=== PATIENT | female | born 1995 | race Two or more races ===

== ENCOUNTER 2024-10-09 18:20 | Emergency (ER) | payer OTHER ==
[~2024-10-09] VITALS: Ht 165.1 cm; Wt 76.2 kg
== END 2024-10-09 22:41 | disposition left against medical advice (07) ==
LOC: ER 18:22
DX: K06.9 Disorder of gingiva and edentulous alveolar ridge, unspecified (principal); Z3A.08 8 weeks gestation of pregnancy; Z53.29 Procedure and treatment not carried out because of patient's decision for other reasons

== ENCOUNTER 2025-04-20 10:28 | Inpatient (IN) | payer OTHER ==
[~2025-04-20] VITALS: Ht 165.1 cm; Wt 98.0 kg
[2025-04-20] MEDS ORDERED: PRENATAL TABLE1 EAC1 PO (10:43)
[2025-04-20 10:44] VITALS: BP 113/63
[2025-04-20] MEDS ORDERED: PEPCID AC20 MG PO (10:44)
[2025-04-20] MEDS ORDERED: RINGERS SOLUTION,LACTATED 1,000 ML IV SCH (10:45)
[2025-04-20 12:20] LABS: PH,URINE 6.5 (5.0-8.0); URINE APPEARANCE Clear; URINE BILIRRUBIN Negative (NEGATIVE); URINE BLOOD Negative; URINE COLOR Yellow; URINE GLUCOSE Negative (NEGATIVE); URINE KETONE Negative (NEGATIVE); URINE LEUKOCYTE Negative; URINE NITRATE Negative; URINE PROTEIN Negative (NEGATIVE)
[2025-04-20 12:26] VITALS: BP 105/72
[2025-04-20 12:26] LABS: URINE BACTERIA 292.4 uL (0.0-1933); URINE EPITHELIAL CELLS 26.5 uL (0.0-38.8); URINE RBC 5.4 uL (0.0-20.8); URINE WBC 18.6 uL (0.0-23.2)
[2025-04-20 12:43] LABS: URINE CAST 0.14 uL (0.0-1.40)
[2025-04-20 12:48] VITALS: BP 105/72; BP 113/63
[2025-04-20 13:00] LABS: INR 0.94; PARTIAL THROMBOPLASTIN TIME 23.6 SECONDS (22.0-34.0); PROTHROMBIN TIME 10.3 SECONDS (9.0-11.5)
[2025-04-20 13:08] LABS: ALBUMIN 2.6 gm/dL (3.4-5.0); BILIRUBIN TOTAL 0.38 mg/dL (0.3-1.2); CALCIUM 8.7 mg/dL (8.5-10.1); CREATININE SERUM 0.46 mg/dL (0.55-1.02); GFR 158.44; GLOBULINA 3.4 G/DL (2.4-3.5)
[2025-04-20] MEDS ORDERED: AMPICILLIN SODIUM 2,000 MG VIAL IV STA (13:19)
[2025-04-20] MEDS ORDERED: AMPICILLIN SODIUM 2,000 MG VIAL ONE (13:23)
[2025-04-20] MEDS ORDERED: OXYTOCIN 500 ML IV SCH (13:45)
[2025-04-20 15:21] VITALS: BP 111/59; BP 98/66
[2025-04-20 15:25] LABS: BASO % 0.3 % (0.1-1.2); EOS # 0.04 (0.04-0.54); EOS % 0.6 % (0.7-7.0); HEMATOCRIT 32.2 % (34.1-44.9); HEMOGLOBIN 10.5 g/dL (11.2-15.7); LYMPH # 1.35 (1.18-3.74); LYMPH % 19.5 % (19.3-53.1); MEAN CORPUSCULAR HEMOGLOBIN 28.5 pg (25.6-32.2); MONO % 10.1 % (4.7-12.5); NEUT # 4.77 (1.56-6.13); NEUT % 68.9 % (34.0-71.1); PLATELET COUNT 227 K/uL (163-369); RED BLOOD COUNT 3.69 M/uL (3.93-5.22); RED CELL DISTRIBUTION WIDTH 12.3 % (11.6-14.4)
[2025-04-20] MEDS ORDERED: AMPICILLIN SODIUM 1,000 MG VIAL IV SCH (17:00)
[2025-04-20] MEDS ORDERED: ERYTHROMYCIN BASE OPHT 1GM EACH TUBE OP ONE ×2 (18:49→21:54)
[2025-04-20] MEDS ORDERED: OXYTOCIN 20 UNITS/1000ML RL PIGGYBAG IV ONE ×2 (18:49→23:20)
[2025-04-20] MEDS ORDERED: LIDOCAINE HCL 1% 10ML VIAL ONE (18:50)
[2025-04-20] MEDS ORDERED: CHLORHEXIDINE GLUCONATE 120 ML BOTTLE TOP ONE (18:50)
[2025-04-20 19:32] VITALS: BP 136/60
[2025-04-20] MEDS ORDERED: CITRIC ACID/SODIUM CITRATE 30 ML BLIST.PACK PO ONE (21:30)
[2025-04-20] MEDS ORDERED: IBUprofen 600 MG TABLET PO SCH (22:15)
[2025-04-20 23:26] VITALS: BP 110/58
[2025-04-21 01:25] VITALS: BP 118/74
[2025-04-21 09:02] VITALS: BP 100/60
[2025-04-21] MEDS ORDERED: FAMOtidine 20 MG TABLET PO NR (10:15)
[2025-04-21 10:51] LABS: BASO % 0.1 % (0.1-1.2); EOS # 0.02 (0.04-0.54); EOS % 0.1 % (0.7-7.0); HEMATOCRIT 33.2 % (34.1-44.9); HEMOGLOBIN 11.2 g/dL (11.2-15.7); LYMPH # 2.02 (1.18-3.74); LYMPH % 11.4 % (19.3-53.1); MEAN CORPUSCULAR HEMOGLOBIN 29.2 pg (25.6-32.2); MONO # 1.37 (0.24-0.82); MONO % 7.7 % (4.7-12.5); NEUT # 14.16 (1.56-6.13); NEUT % 80.2 % (34.0-71.1); PLATELET COUNT 263 K/uL (163-369); RED BLOOD COUNT 3.83 M/uL (3.93-5.22); RED CELL DISTRIBUTION WIDTH 12.3 % (11.6-14.4)
[2025-04-21 12:50] VITALS: BP 108/65
[2025-04-21 16:00] VITALS: BP 97/64
[2025-04-21] MEDS ORDERED: FAMOtidine 20 MG TABLET PO SCH (17:00)
[2025-04-22 01:12] VITALS: BP 100/62
[2025-04-22 08:00] VITALS: BP 102/69
== END 2025-04-22 15:44 | disposition home or self-care (01) | DRG 807 ==
LOC: OBS/DEL 10:28 → LDR 13:07 → OB/GYN 13:07
PROVIDERS: Obstetrics & Gynecology; ADMIT Specialist; ATTEND Specialist
PROC: 10E0XZZ Delivery of Products of Conception, External Approach (ICD-10-PCS; principal; 2025-04-20)
PROC: 4A1HXCZ Monitoring of Products of Conception, Cardiac Rate, External Approach (ICD-10-PCS; 2025-04-20)
PROC: BY4FZZZ Ultrasonography of Third Trimester, Single Fetus (ICD-10-PCS; 2025-04-20)
PROC: BU4CZZZ Ultrasonography of Uterus and Ovaries (ICD-10-PCS; 2025-04-20)
DX: O60.14X0 Preterm labor third trimester with preterm delivery third trimester, not applicable or unspecified (principal); O36.8130 Decreased fetal movements, third trimester, not applicable or unspecified; O26.843 Uterine size-date discrepancy, third trimester; O42.013 Preterm premature rupture of membranes, onset of labor within 24 hours of rupture, third trimester; Z3A.36 36 weeks gestation of pregnancy; Z37.0 Single live birth